=== PATIENT | female | born 1965 ===

== ENCOUNTER 2020-03-25 01:11 | Outpatient (CLI) | payer MEDICARE, SELFPAY ==
[2020-03-25 23:26] LABS: SARS-CoV-2 RNA PCR Negative
== END 2020-03-25 01:12 | disposition home or self-care (01) ==
LOC: ANHCOVIDDT 01:11
PROVIDERS: PCP Internal Medicine; Visit Provider Internal Medicine Critical Care Medicine
DX: R68.89 Other general symptoms and signs (principal); Z20.828 Contact with and (suspected) exposure to other viral communicable diseases
CPT/HCPCS: 87635; C9803; U0003

== ENCOUNTER 2020-03-27 08:26 | Outpatient (CLI) | payer MEDICARE, SELFPAY ==
--- NOTE | 2020-05-05 19:57 | WPDSLEEPSTUD ---
Sleep Study Date of Study: 03/27/20 Ordering Provider: Anais King MD Interpreting Physician: Anais King MD Sleep Study Type: Split Polysomnogram Height: 1.65 m Weight: 136.078 kg Body Mass Index: 49.9 [place]: 5 PMFSH Past Medical History Medical History Chronic back pain Diabetes History of DVT (deep vein thrombosis) Hyperlipidemia Hypertension Immobility Neuropathy Sleep apnea Surgical History Surgical History Colonoscopy planned History of partial hysterectomy Social History Social History Smoking status: Never smoker Tobacco type: cigarettes Smoking end date: 03/12/18 Medications Home Medications Medication Instructions Recorded Confirmed Type apixaban 5 mg tablet 5 mg PO BID 06/03/19 History atorvastatin 10 mg tablet 10 mg PO DAILY 06/03/19 History cyclobenzaprine 5 mg tablet 5 mg PO BID tablet 06/03/19 History dapagliflozin 5 mg tablet 5 mg PO DAILY 06/03/19 History exenatide microspheres 2 mg/0.85 2 mg SUB-Q Q7D 06/03/19 History mL subcutaneous auto-injector furosemide 40 mg tablet 40 mg PO QAM 06/03/19 History glimepiride 1 mg tablet 1 mg PO QAM 06/03/19 History lisinopril 10 1 tablet PO DAILY 06/03/19 History mg-hydrochlorothiazide 12.5 mg tablet metformin 1,000 mg tablet 1,000 mg PO BID 06/03/19 History metoprolol tartrate 50 mg tablet 50 mg PO BID tablet 06/03/19 History ranitidine HCl 150 mg tablet 150 mg PO BID tablet 06/03/19 History aspirin 81 mg tablet,delayed 81 mg PO DAILY 06/04/19 History release Sleep Procedure This test was performed using the [employer] multiple channel system including EOG, EEG, submental EMG, EKG, nasal and oral airflow using thermistors and nasal pressure sensors, chest and abdominal belts for body position data, and pulse oximetry. Video monitoring was also performed. The study was scored using CMS guidelines. After the baseline portion the patient met criteria for a titration. Her AHI was 3.o with a REM AHI of 16 with desaturation. This elevation in REM allowed her to proceed with CPAP [place]. SHe started Sleep Architecture Baseline The duration of the baseline was 196.8 minutes, sleep time was 181.6 minutes. THe sleep efficicnecy was 92.3%. The sleep latency was 13.7 minutes, the REM latency was 85.5 minutes. The patient had 2 awakenings and spent 1.5 minutes awake after sleep onset. Sleep archetecture showed 1.9% stage I sleep which is low, 53.5% stage II sleep, 36.3% stage III sleep and 8.3% stage REM, less REM than anticipated. She spent no time in the supine position as she was sleeping in a recliner. Titration The duration of the recording time was 201.5 minutes. The duration of the sleep time was 160.1 minutes. The sleep efficiency was lower at 79.5%, sleep latency was 1.4 minutes. REM latency was 82.5 minutes with 11 awakenings and 40 minutes awake after sleep onset. Sleep archetcture showed 6.2% stage I sleep, 79.1% stage II sleep, absence of stage II sleep and 14.7% stage REM. She spent the entire time in the recliner, so none of the sleep was scored as supine. Sleep overall was more fragmented i nteh last half of the study. There were only 2 REM cycles in during the night, which is abnormal. She had a significant increase in the amount of REM during the titration. Respiratory Analysis Baseline Titration Periodic Limb Movements Baseline Titration Oximetry Data Baseline Titration EEG Profile EEG was unremarkable, no evidence of seizures.
--- NOTE | 2020-05-13 10:40 | WPDSLEEPSTUD ---
Sleep Study Date of Study: 03/27/20 Ordering Provider: Anais King MD Interpreting Physician: Anais King MD Sleep Study Type: Split Polysomnogram Height: 1.65 m Weight: 136.078 kg Body Mass Index: 49.9 Neck Circumference: 45.72 cm [place]: 12 Reason for Sleep Study History of obstructive sleep apnea syndrome, having weight loss surgery evaluation at [facility]; BMI was 60 at the office visit 06/04/2019 Sleep History Fabi Henson is a 54 year-old female with with hypertension, depression after losing some relatives. She has a difficult time falling asleep at night and she has excessive daytime sleepiness. She has a family history with her son having a diagnosis of sleep apnea. She constantly snores and is constantly loud enough that others complain about it. She does not awaken at night with heartburn, belching or coughing. She does not awaken from sleep feeling short of breath. she occasionally has trouble sleeping with a cold and occasionally wakes up gasping for breath at night. She does not have breathing problems at night reported to her by others. She denies sweating excessively at night and denies her heart pounding or beating irregularly at night. She does not fall asleep during the day. She constantly falls asleep involuntarily, rarely while driving. She does not fall asleep during physical effort. She does not have loss of muscle tone with strong emotion. She does not have daytime difficulties due to excessive sleepiness. She occasionally feels paralyzed on waking or falling asleep. She occasionally has vivid dreamlike scenes upon awakening or falling asleep. She is not afraid to go to sleep. She does not have nightmares. She rarely remembers her dreams. She occasionally has racing thoughts. She occasionally has feelings of sadness depression and anxiety. She does not have muscular tension. She constantly notices parts of her body jerking and she occasionally kicks at night. She constantly has crawling and aching feelings in her legs, constantly has leg pain during the night. She does not have morning jaw pain. She does not grind her teeth during sleep, does not have pain during the day and is not awakened by pain at night. She occasionally wakes up feeling stiff in the morning. She does not wake up with sore or achy muscles or with pain in the neck and spine. She has fatigue, memory problems, insomnia, headaches, palpitations, bowel disturbances and depression. She does not keep a fixed sleep schedule. She sleeps 10-12 hours a day. She may go to bed as early as 5 p.m., and the amount of time it takes for her to fall asleep depends on several factors. She may stay up overnight and go to sleep at 5:00 am. She wakes throughout the night to go to the bathroom. Her wake time depends on when she gets to sleep. She estimates 10+ hours of sleep throughout the night but feels that she could always take a nap during the day. Her weekend schedule is the same. She does nap throughout the day and her naps can last 1-2 hours. She usually naps but not while she is sleeping in the bed. A short nap may be refreshing. She feels worse in the morning compared to other times of day. Habits: Previously smoked tobacco. Caffeine, 2-3 servings of 12 oz sodas daily. Alcohol 1 beverage on occasion. No recreational drugs. [facility] Past Medical History Medical History Chronic back pain Diabetes History of DVT (deep vein thrombosis) Hyperlipidemia Hypertension Immobility Neuropathy Sleep apnea Surgical History Surgical History Colonoscopy planned History of partial hysterectomy Family History Family History (Updated 05/15/20 @ 13:25 by Anais King MD) Son Obstructive sleep apnea Social History Social History (Updated 05/15/20 @ 13:32 by Anais King MD) Smoking status: Former smoker Tobacco type:
[2020-05-15 13:07] VITALS: BMI 49.9
== END 2020-03-27 08:27 | disposition home or self-care (01) ==
LOC: ANHCSM 08:27
PROVIDERS: PCP Internal Medicine; Visit Provider Internal Medicine Critical Care Medicine
DX: G47.33 Obstructive sleep apnea (adult) (pediatric) (principal)
CPT/HCPCS: 95811